=== PATIENT | male | born 1955 | race Caucasian/White ===

== ENCOUNTER → 2021-05-02 | Outpatient (CLI) | payer BC ==
[2021-05-02 17:28] LABS: BASO # 0.01 K/mm3 (0.02-0.10); EOS # 0.05 K/mm3 (0.04-0.40); EOS % 0.6 % (0.0-4.0); HEMATOCRIT 47.2 % (42.0-52.0); HEMOGLOBIN 16.3 g/dL (13.5-18.0); LYMPH# 1.47 K/mm3 (1.50-4.00); MEAN CELL VOLUME 92 fl (78-100); MEAN CORPUSCULAR HEMOGLOBIN 32 pg (27-31); MEAN CORPUSCULAR HGB CONC 35 g/dL (33-37); MEAN PLATELET VOLUME 8.4 fl (7.4-10.4); MONO # 0.48 K/mm3 (0.20-0.80); NEU # 5.98 K/mm3 (1.40-6.50); PLATELET COUNT 198 K/mm3 (130-400); RED BLOOD COUNT 5.15 M/mm3 (4.20-5.60); RED CELL DISTRIBUTION WIDTH 11.8 % (11.5-14.5)
[2021-05-02 17:39] LABS: ALBUMIN 4.8 g/dL (3.4-4.8)
[2021-05-02 17:40] LABS: POTASSIUM 4.5 mmol/L (3.5-5.1); SODIUM 138 mmol/L (136-145)
[2021-05-02 17:41] LABS: CALCIUM 9.8 mg/dL (8.3-10.5)
[2021-05-02 17:42] LABS: GLUCOSE 103 mg/dL (75-110); TOTAL PROTEIN 7.8 g/dL (6.2-8.1)
[2021-05-02 17:43] LABS: CARBON DIOXIDE 25 mmol/L (23-31)
[2021-05-02 17:44] LABS: TOTAL BILIRUBIN 0.4 mg/dL (0.2-1.2)
[2021-05-02 17:47] LABS: AST-SGOT 16 U/L (5-34)
[2021-05-02 17:49] LABS: ALT/SGPT 30 U/L (0-55); LIPASE 29 U/L (8-78)
[2021-05-02 18:34] LABS: URINE APPEARANCE CLEAR; URINE BILIRUBIN NEGATIVE (NEGATIVE); URINE BLOOD NEGATIVE (NEGATIVE); URINE COLOR YELLOW; URINE GLUCOSE NEGATIVE (NEGATIVE); URINE KETONE NEGATIVE (NEGATIVE); URINE LEUKOCYTE ESTERASE NEGATIVE (NEGATIVE); URINE NITRATE NEGATIVE (NEGATIVE); URINE PROTEIN(semi-quant) TRACE (NEGATIVE); URINE UROBILINOGEN NORMAL (NORMAL); URINE WBC 0-1 /hpf (0-3)
== END ==
LOC: LAB 17:14
PROVIDERS: Nurse Practitioner Family
DX: R10.9 Unspecified abdominal pain (principal)